=== PATIENT | female | born 1985 | race Caucasian/White ===

== ENCOUNTER 2016-08-29 17:16 | Emergency (ER) | payer OTHER ==
[~2016-08-29] VITALS: Ht 170.2 cm; Wt 56.7 kg
[2016-08-29 19:36] VITALS: BP 110/72
== END 2016-08-29 19:37 | disposition home or self-care (01) ==
LOC: ER 17:18
DX: M79.605 Pain in left leg (principal); E78.00 Pure hypercholesterolemia, unspecified; M51.26 Other intervertebral disc displacement, lumbar region
CPT/HCPCS: 93971; 99284; A4606; Z7610